=== PATIENT | female | born 1960 | race Caucasian/White ===

== ENCOUNTER 2017-12-11 10:20 | Emergency (ER) | payer OTHER ==
[~2017-12-11] VITALS: Ht 170.2 cm; Wt 144.2 kg
[~2017-12-11 10:20] MED LIST: ACETAMINOPHEN500 M4 PO; COUMADIN2 M1 PO; LASIX20 M1 PO; LIPITOR20 M2 PO; PERCOCET 5-3251 EACH PO; PRINIVIL10 M1 PO
[2017-12-11 10:41] VITALS: BP 110/51
--- NOTE | 2017-12-11 11:04 | ED MVC/FALL/TRAUMA COMPLAINT ---
History of Present Illness General Chief Complaint: Fall Stated Complaint: FALL/RT KNEE PAIN/BACK PAIN Source: patient, old records Exam Limitations: no limitations Vital Signs & Intake/Output Vital Signs & Intake/Output Vital Signs Date Time Temp Pulse Resp B/P B/P Pulse O2 O2 Flow FiO2 Mean Ox Delivery Rate 12/11 1041 98.5 87 20 110/51 95 Room Air Allergies Coded Allergies: No Known Allergies (07/08/17) Reconcile Medications Atorvastatin Calcium (Lipitor) 20 MG TABLET 1 TAB PO DAILY CHOLESTEROL ( Reported) Furosemide (Lasix) 20 MG TABLET 3 TAB PO DAILY DIURETIC (Reported) Lisinopril (Prinivil) 10 MG TABLET 1 TAB PO DAILY BP (Reported) Tylenol With Codeine (Tylenol With Codeine #3 Tablet) 300 MG-30 MG TABLET 1 TAB PO BIDP PRN pain Warfarin Sodium (Coumadin) 2 MG TABLET 1 TAB PO 1700 BLOOD THINNER (Reported) Triage Note: TRIPPED AND FELL IN BR LAST NIGHT INJURING RIGHT KNEE AND LOWER BACK. UNSURE OF HEADSTRIKE, NO LOC. PT ALSO STATES RIGHT AND LEFT SIDE OF NECK PAIN. PT TAKES COUMADIN FOR A FIB Triage Nurses Notes Reviewed? yes Onset: Abrupt Duration: day(s): (1), constant, changing over time Timing: recent history Severity: moderate Severity Numbers: 7 Injuries/Fall Location: neck, lower extremity Method of Injury: fall Loss of Consciousness: no loss of consciousness Modifying Factors: Improves With: rest. Worsens With: movement. Associated Symptoms: denies HPI: 87-year-old female history of A. fib on Coumadin hypertension high cholesterol presents to the ER with family status post mechanical fall last night when she tripped over a step into her bathroom landing on her right knee. The injury occurred around 10:00 last night. She states she did not hit her head was no loss of consciousness which now presents complaining of right anterior knee pain worse with change in position, lower back pain that is only present with change in position and bilateral pain to the sides of her neck. She denies any arm or left leg chest abdomen or upper back pain no headache. No numbness no tingling. She took Tylenol without improvement. There is no prodromal dizziness lightheadedness prior to the fall. Past History Travel History Traveled to [place] past 21 day No Medical History Any Pertinent Medical History? see below for history Cardiovascular: hypertension, hyperlipidemia, A FIB Renal: VASYL Musculoskeletal: osteoarthritis Surgical History Surgical History: non-contributory Psychosocial History What is your primary language Chilean Tobacco Use: Quit >30 days ago ETOH Use: denies use Illicit Drug Use: denies illicit drug use Family History Hx Contributory? No Review of Systems Review of Systems Constitutional: Reports: see HPI. Comments Review of systems: See HPI, All other systems negative. Constitutional, no chills no fever, HEENT: no sore throat no congestion Cardiovascular: No chest pain , no palpitation Skin: no rashes, no change in skin Respiratory: No dyspnea no cough GI: No nausea no vomiting, Muscle skeletal: see hpi Neurologic: , no headache Heme/endocrine: No bruising Physical Exam Physical Exam General Appearance: well developed/nourished, no apparent distress, alert Comments: Obese female in no apparent distress. HEENT: Atraumatic, extraocular motion intact Neck: Supple, bilateral paracervical muscle tenderness no midline tenderness no ecchymosis FROM Back: FROM bilateral paralumbar muscle tenderness no midline tenderness no ecchymosis or signs of trauma Cardiovascular: Regular rate and rhythms no murmur Respiratory: Chest nontender.There were no bony deformities, no asymmetry. No respiratory distress. Patient speaking in full complete sentences. Breath sounds clear to auscultation bilaterally: NO W/R/R Shoulder: Atraumatic/Stable. FROM . Elbow: Atraumatic/stable. FROM. No laxity Upper arm/Forearm: Atraumatic. Nontender. 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 Skin intact. FROM Hip/Pelvis: Atraumatic/Stable. FROM. No pain with pelvic compression Knee: Right knee anterior tenderness small area of ecchymosis, no swelling, full range of motion both active and passive, no effusion. No laxity. Negative alejandra/anterior drawer test. No pain with ROM the left knee is Atraumatic/ stable. FROM. No joint swelling, no effusion. No laxity. Negative alejandra/ anterior drawer test. No pain with ROM Leg: Atraumatic. Nontender. No edema, 5 out of 5 strength in the lower extremity, normal dorsiflexion of great toe bilaterally, gross sensation is intact Ankle/Foot: Atraumatic/stable. Skin intact. FROM. No swelling, no effusion. No laxity on exam Pulses: Normal/equal DP/PT pulses bilaterally. Brisk cap refill Neuro: awake, alert, and oriented to person, place and time. There were no obvious focal neurologic abnormalities. Skin: Warm & dry;No appreciable rash on exposed skin Psych: Mood affect normal, normal memory normal judgment. Core Measures ACS in differential dx? No CVA/TIA Diagnosis No Sepsis Present: No Sepsis Focused Exam Completed? No Progress Differential Diagnosis: C/T/L spine injury, ext injury, spinal cord injury Plan of Care: Orders Procedure Date/time Status XRY-LUMBOSACRAL SPINE AP & LAT 12/12 1111 Active XRY-KNEE COMPLETE RIGHT 12/12 1111 Active XRY-CERV SPINE 3 VIEWS OR LESS 12/12 1111 Active xrays ordered I discussed with the patient at length all of their results. There is no midline tenderness over her cervical thoracic or lumbar spine, patient has full range of motion without worsening symptoms in her back and neck. Case management discussed with the patient has they're requesting information for visiting care services. They feel comfortable with plan to discharge I had an extensive conversation regarding need for close follow up with their primary care physician/ortho this week as well as return precautions. I answered all of their questions, they feel comfortable with the plan and follow-up care. I discussed with the patient/family the medications that they will receive. I gave them signs and symptoms that could indicate an adverse reaction. I have advised them to limit their activities until they can see how they respond to the medication. Diagnostic Imaging: Viewed by Me: Radiology Read. Discussed w/RAD: Radiology Read. Radiology Impression: PATIENT: DOMINIQUE CHAWLA PRESENT AGE: 57 PATIENT ACCOUNT NO: [id number] : 60 LOCATION: [facility] ORDERING PHYSICIAN: Dada PIZANO SERVICE DATE: 12/11/17 EXAM TYPE: RAD - XRY- CERV SPINE 3 VIEWS OR LESS; XRY-KNEE COMPLETE RIGHT; XRY-LUMBOSACRAL SPINE AP & LAT 4 VIEWS OF THE RIGHT KNEE, 3 VIEWS OF THE CERVICAL SPINE, AND 2 VIEWS OF THE LUMBAR SPINE CLINICAL INFORMATION: Fall with pain COMPARISON: None available FINDINGS: Cervical spine: On the lateral view there is nondiagnostic assessment at and below the C5 level secondary to overlapping soft tissues. I cannot exclude fractures or subluxations at these levels. The remainder of the cervical spine is intact. Anterior endplate osteophytes at C2 and C3. The imaged disc spaces are preserved. Dens view is limited by patient rotation with the dens itself appearing intact. There is multilevel hypertrophic facet arthropathy. Lumbar spine: For the purposes of this report there are hypoplastic ribs or articulating transverse processes at the lowermost thoracic type segment. L5 is partially sacralized. Vertebral body heights are maintained. There is moderate disc space loss at L4-L5 and L5-S1. No acute fractures and no acute subluxations are identified. There is multilevel hypertrophic facet arthropathy that greatest at L4-L5 and L5-S1. Multilevel endplate osteophytes. Surgical clips within the right upper quadrant. Right knee: There is significant patellofemoral and medial greater than lateral joint space loss. Marginal osteophytosis. No acute fractures are appreciated. No knee joint effusion. Flabella incidentally noted. No radiopaque foreign bodies. IMPRESSION: Cervical spine: Nondiagnostic assessment of the cervical spine at and below the C5 level secondary to overlapping soft tissues on the lateral view. Fractures and subluxations cannot be excluded by imaging at these levels. If there is continued clinical suspicion for cervical spine injury, consider a cervical spine CT for further assessment. Lumbar spine: No acute osseous findings. Lumbar spondylosis that is moderate to severe at the L4-L5 and L5-S1 levels. Right knee: No acute osseous findings. Moderate to severe osteoarthritis of the right knee. DICTATED BY: Thaddeus Valdes MD DATE/TIME DICTATED:12/11/171236 MACHINE PACK ASSEMBLER:FARIHA DATE/TIME TRANSCRIBED:12/11/171236 CONFIDENTIAL, DO NOT COPY WITHOUT APPROPRIATE AUTHORIZATION. <Electronically signed in Other Vendor System> SIGNED BY: Thaddeus Valdes MD 12/11/17 1248 Departure Departure Time of Disposition: 1306 Disposition: HOME OR SELF CARE Condition: Stable Clinical Impression Primary Impression: Fall Secondary Impressions: Back strain, Knee strain Referrals: Edgardo ROSALES,Benitez Plaza MD,Iraida (PCP/Family) Additional Instructions: Follow up with your primary care physician as well as orthopedist Dr. pena. rest, ice your knee. tylenol with codeine for breakthrough pain- use caution as this will make you drowsy. Return with any concerns Departure Forms: Customer Survey General Discharge Information Prescriptions: Current Visit Scripts Tylenol With Codeine (Tylenol With Codeine #3 Tablet) 1 TAB PO BIDP PRN pain #10 TAB
--- NOTE | 2017-12-11 12:48 | RADIOLOGY REPORT ---
4 VIEWS OF THE RIGHT KNEE, 3 VIEWS OF THE CERVICAL SPINE, AND 2 VIEWS OF THE LUMBAR SPINE CLINICAL INFORMATION: Fall with pain COMPARISON: None available FINDINGS: Cervical spine: On the lateral view there is nondiagnostic assessment at and below the C5 level secondary to overlapping soft tissues. I cannot exclude fractures or subluxations at these levels. The remainder of the cervical spine is intact. Anterior endplate osteophytes at C2 and C3. The imaged disc spaces are preserved. Dens view is limited by patient rotation with the dens itself appearing intact. There is multilevel hypertrophic facet arthropathy. Lumbar spine: For the purposes of this report there are hypoplastic ribs or articulating transverse processes at the lowermost thoracic type segment. L5 is partially sacralized. Vertebral body heights are maintained. There is moderate disc space loss at L4-L5 and L5-S1. No acute fractures and no acute subluxations are identified. There is multilevel hypertrophic facet arthropathy that greatest at L4-L5 and L5-S1. Multilevel endplate osteophytes. Surgical clips within the right upper quadrant. Right knee: There is significant patellofemoral and medial greater than lateral joint space loss. Marginal osteophytosis. No acute fractures are appreciated. No knee joint effusion. Flabella incidentally noted. No radiopaque foreign bodies. IMPRESSION: Cervical spine: Nondiagnostic assessment of the cervical spine at and below the C5 level secondary to overlapping soft tissues on the lateral view. Fractures and subluxations cannot be excluded by imaging at these levels. If there is continued clinical suspicion for cervical spine injury, consider a cervical spine CT for further assessment. Lumbar spine: No acute osseous findings. Lumbar spondylosis that is moderate to severe at the L4-L5 and L5-S1 levels. Right knee: No acute osseous findings. Moderate to severe osteoarthritis of the right knee.
[2017-12-11] MEDS ORDERED: TYLENOL WITH C1 EACH PO (13:06)
== END 2017-12-11 13:34 ==
LOC: ERH 10:20
DX: S39.012A Strain of muscle, fascia and tendon of lower back, initial encounter (principal); S86.811A Strain of other muscle(s) and tendon(s) at lower leg level, right leg, initial encounter; W18.09XA Striking against other object with subsequent fall, initial encounter; Y92.002 Bathroom of unspecified non-institutional (private) residence as the place of occurrence of the external cause; Y93.9 Activity, unspecified
CPT/HCPCS: 72040; 72100; 73562-RT